=== PATIENT | male | born 1985 | race Caucasian/White ===

== ENCOUNTER → 2016-10-09 | Emergency (ER) | payer OTHER ==
[~2016-10-09] MED LIST: ONDANSETRON 4 MG/2 ML VIAL IVPUSH ONE; ONDANSETRON 4 MG/2 ML VIAL ONE; SODIUM CHLORIDE 0.9% 1000 ML INFUS.BAG IV ONE
[2016-10-09 14:42] VITALS: BMI 24.7
--- NOTE | 2016-10-09 15:30 | PDOC ---
Attending Attestation - Resident Resident Name: Donte Arambula - ED Attending Attestation I have performed the following: I have examined & evaluated the patient, The case was reviewed & discussed with the resident, I agree w/resident's findings & plan, Exceptions are as noted - HPI HPI: 10/09/16 15:28 The patient is a 30-year-old male, with no significant past medical history, who presents to the emergency department with approximately 9 days of intermittent diarrhea, with nausea and vomiting. The diarrhea is nonbloody, and without mucus. He is having 4-5 episodes per day. He has vomited a total of 4 times since the onset of the symptoms, but because of nausea, has had decreased by mouth intake. He reports subjective fever accompanied by chills. Two his family members were sick, with the same symptoms, but are now well. No recent ingestion of river, stream or [place] water. No recent ingestion of raw meat. No recent ingestion of shellfish. No antibiotic use in the past 6 months. No recent travel outside of the [facility]. No sick contacts with similar symptoms. No blood or mucous noted in the stools. - Physicial Exam PE: 10/09/16 15:30 The patient is well-appearing and in no acute distress Vitals noted Abdomen is soft and nontender 10/09/16 16:18 - Medical Decision Making 10/09/16 15:30 The patient is well-appearing and in no acute distress His abdomen is soft, even to deep palpation Given the duration of his symptoms, will obtain labs and stool studies 10/09/16 16:18 Labs pending I discussed the plan of care with the resident If he has significant leukocytosis or stool is guaiac positive, we will provide a five-day course of a fluoroquinolone Otherwise, he will be discharged, with instructions to follow-up with his primary care physician tomorrow and to ensure that they received culture results Clinical impression: Diarrhea Case discussed in detail with oncoming Emergency Physician including history, physical exam and ancillary studies. Oncoming Emergency Physician has assumed care for the patient and will complete the evaluation and treatment. Discharge Disposition - Diagnosis Diarrhea - Patient Instructions Additional Instructions: Return to the emergency department immediately with ANY new, persistent or worsening symptoms. You MUST call and follow up with your doctor tomorrow. Please make sure your doctor reviews the results of your emergency department evaluation. Specifically, please make sure your doctor reviews the results of the stool studies we sent.
--- NOTE | 2016-10-09 15:53 | PDOC ---
History of Present Illness - General Chief Complaint: Diarrhea Stated Complaint: DIARRHEA Time Seen by Provider: 10/09/16 14:50 History Source: Patient, Sibling Exam Limitations: No Limitations - History of Present Illness Initial Comments: 10/09/16 15:41 The patient is a 30M with no significant PMH who presents to the ED with diarrhea and vomiting for 8 days. He has been experiencing diarrhea 4X/day and vomited 4 times since symptom onset. There is no blood or mucus in his stool, he describes it only as watery. He came back 7 days ago from [place]. He also complains of a headache since Saturday. Yesterday he states he had a fever. He denies drinking water in [place]. He states that his and daughter had similar symptoms for 1 day, but have since resolved. ROS+: fever, chills, nausea, vomiting, headache ROS-: CP, SOB, bloody diarrhea Allergies: NKDA PSH: None Social: Does not smoke, drink, or use recreational drugs Past History - Past Medical History Allergies/Adverse Reactions: Allergies Allergy/AdvReac Type Severity Reaction Status Date / Time No Known Allergies Allergy Verified 10/09/16 14:42 Home Medications: Ambulatory Orders Cyclobenzaprine HCl [Flexeril -] 10 mg PO TID PRN #12 tablet 02/17/16 Ibuprofen 600 mg PO QID PRN #20 tablet 02/17/16 - Immunization History Immunization Up to Date: Yes - Psycho/Social/Smoking Cessation Hx Anxiety: No Suicidal Ideation: No Smoking History: Never smoked Have you smoked in the past 12 months: No Number of Cigarettes Smoked Daily: 0 Information on smoking cessation initiated: No Hx Alcohol Use: No Drug/Substance Use Hx: No Substance Use Type: None Review of Systems - Review of Systems Able to Perform ROS?: Yes Is the patient limited Pakistani proficient: No Constitutional: Yes: Chills, Fever. No: Loss of Appetite Respiratory: No: Shortness of Breath Cardiac (ROS): No: Chest Pain ABD/GI: Yes: Diarrhea, Nausea, Other (Watery diarrhea). No: Abdominal Distended *Physical Exam - Vital Signs Last Vital Signs Temp Pulse Resp BP Pulse Ox 98.5 F 78 18 125/80 100 10/09/16 14:39 10/09/16 14:39 10/09/16 14:39 10/09/16 14:39 10/09/16 14:39 - Physical Exam General Appearance: Yes: Nourished, Appropriately Dressed Respiratory/Chest: positive: Lungs Clear, Normal Breath Sounds. negative: Respiratory Distress Cardiovascular: positive: Regular Rhythm, Regular Rate, S1, S2 Gastrointestinal/Abdominal: positive: Normal Bowel Sounds, Flat, Soft, Tenderness (Tenderness to deep palpation diffusely). negative: Decreased BS, Protuberent, Distended, Guarding ED Treatment Course - LABORATORY CBC & Chemistry Diagram: 10/09/16 15:52 10/09/16 15:52 Medical Decision Making - Medical Decision Making 10/09/16 15:58 Patient is a 30M with no PMH who presents with vomiting and diarrhea for 8 days after visiting [place]. Patient is comfortable in bed. Labs have been drawn and stool cultures are pending the patient. The patient will be updates as labs/ results come in. 10/09/16 16:35 Patient expressed desire to have a bowel movement, was given a stool hat. After coming out of the restroom he stated he just had cramps and wanted something to eat. I gave him toast and applesauce and water, he states he is comfortable. Pending chem labs. CBC all WNL. 10/09/16 16:57 Patient is comfortably laying down. His food and water PO challenge is successful. 1 more L of NS is being hung and he is comfortable with plans. 10/09/16 18:07 Patient is feeling better, L is still hung and dripping. States he is comfortable with leaving if he does not produce a stool sample to process. 10/09/16 18:57 Patient received 2nd liter and is feeling better. Plans for discharge have been explained and all patient's questions have been answered. *DC/Admit/Observation/Transfer Diagnosis at time of Disposition: Diarrhea - Discharge Dispostion Disposition: HOME Condition at time of disposition: Stable Admit: No - Patient Instructions Additional Instructions: Return to the emergency department immediately with ANY new, persistent or worsening symptoms. You MUST call and follow up with your doctor tomorrow. Please make sure your doctor reviews the results of your emergency department evaluation. Specifically, please make sure your doctor reviews the results of the stool studies we sent. - Attestations Physician Attestion: 10/09/16 15:58 I, Dr. Donte Arambula, attest that this document has been prepared under my direction and personally reviewed by me in its entirety. I further attest, that it accurately reflects all work, treatment, procedures and medical decision -making performed by me.
[2016-10-09 16:05] LABS: BASOPHIL 0.5 % (0-2.0); EOSINOPHIL 0.4 % (0-4.5); MCH 29.6 pg (25.7-33.7); MCHC 33.8 g/dl (32.0-35.9); MEAN CELL VOLUME 87.7 fl (80-96); MEAN PLT VOLUME 8.5 fl (7.5-11.1); NEUTROPHILS 69.5 % (42.8-82.8); PLATELET COUNT 200 K/MM3 (134-434); RDW 13.5 % (11.9-15.9); WHITE BLOOD COUNT 5.6 K/mm3 (4.0-10.0)
[2016-10-09 16:40] LABS: ALBUMIN 3.7 g/dl (3.4-5.0); ANION GAP 7 (8-16); BILIRUBIN,TOTAL 0.4 mg/dL (0.2-1.0); CALCIUM 8.4 mg/dL (8.5-10.1); CO2 29 mmol/L (21-32); CREATININE 0.9 mg/dL (0.7-1.3); GLUCOSE,RANDOM 85 mg/dL (74-106); PHOSPHOROUS 3.2 mg/dL (2.5-4.9); SGOT/AST 32 U/L (15-37); SGPT/ALT 34 U/L (12-78); TOT PROT 7.6 g/dl (6.4-8.2)
[2016-10-09 16:41] LABS: ALK PHOS 97 U/L (45-117)
[2016-10-09 19:38] VITALS: BP 115/67; PULSE 70; TEMP 98.7
== END | disposition home or self-care (01) ==
LOC: JER 14:29
PROC: 3E033GC Introduction of Other Therapeutic Substance into Peripheral Vein, Percutaneous Approach (ICD-10-PCS; principal; 2016-10-09)
DX: R19.7 Diarrhea, unspecified (principal)
CPT/HCPCS: 36415; 80053; 83735; 84100; 85025; 96374; 99284-25

== ENCOUNTER 2018-11-05 08:47 | Emergency (ER) | payer SELFPAY ==
[2018-11-05 08:56] VITALS: BP 145/87; PULSE 90; TEMP 98.2; BMI 27.3
[2018-11-05] MEDS ORDERED: CYCLOBENZAPRINE HCL 10 MG TABLET (FP) PO ONE (09:14)
[2018-11-05] MEDS ORDERED: KETOROLAC TROMETHAMINE 60 MG/2 ML VIAL IM ONE (09:14)
[2018-11-05] MEDS ORDERED: CYCLOBENZAPRINE HCL 10 MG TABLET (FP) ONE (09:22)
[2018-11-05] MEDS ORDERED: KETOROLAC TROMETHAMINE 60 MG/2 ML VIAL ONE (09:22)
--- NOTE | 2018-11-05 10:02 | PDOC ---
History of Present Illness - General Chief Complaint: Pain, Acute Stated Complaint: Abcess Time Seen by Provider: 11/05/18 09:04 History Source: Patient Exam Limitations: No Limitations Past History - Past Medical History Allergies/Adverse Reactions: Allergies Allergy/AdvReac Type Severity Reaction Status Date / Time No Known Allergies Allergy Verified 10/09/16 14:42 Home Medications: Ambulatory Orders Cyclobenzaprine HCl [Flexeril 10 mg] 10 mg PO TID PRN #21 tablet 11/05/18 COPD: No - Immunization History Immunization Up to Date: Yes - Suicide/Smoking/Psychosocial Hx Smoking History: Never smoked Have you smoked in the past 12 months: No Number of Cigarettes Smoked Daily: 0 Information on smoking cessation initiated: No Hx Alcohol Use: No Drug/Substance Use Hx: No Substance Use Type: None *Physical Exam - Vital Signs Last Vital Signs Temp Pulse Resp BP Pulse Ox 98.2 F 90 18 145/87 99 11/05/18 08:53 11/05/18 08:53 11/05/18 08:53 11/05/18 08:53 11/05/18 08:53 - Physical Exam General Appearance: No: Apparent Distress Respiratory/Chest: positive: Lungs Clear, Normal Breath Sounds. negative: Respiratory Distress Cardiovascular: positive: Regular Rhythm, Regular Rate, S1, S2. negative: Murmur Gastrointestinal/Abdominal: positive: Normal Bowel Sounds, Soft. negative: Tender, Distended, Guarding, Rebound Musculoskeletal: negative: Vertebral Tenderness Extremity: positive: Other (+positive SLR RLE) Integumentary: positive: Normal Color. 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, Fully Oriented, Alert, Normal Mood/ Affect, Motor Strength 5/5 ED Treatment Course - Medications Given in the ED: ED Medications Discontinued Medications Generic Name Dose Route Start Last Admin Trade Name Freq PRN Reason Stop Dose Admin Cyclobenzaprine HCl 10 mg 11/05/18 09:14 11/05/18 09:29 Flexeril - PO 11/05/18 09:15 10 mg ONCE ONE Administration Ketorolac Tromethamine 60 mg 11/05/18 09:14 11/05/18 09:29 Toradol Injection - IM 11/05/18 09:15 60 mg ONCE ONE Administration Medical Decision Making - Medical Decision Making 32 y/o M with hx of lumbar herniated disc presents with muscle spasms and pain radiating down R posterior leg (down to back of knee) x 1 week along with occasional tingling of R 4th and 5th toes. Pain is worse with sitting down. Denies trauma, heavy lifting, sob, cp, abd pain, n/v, urinary complaints, back pain, saddle/groin paresthesia, bowel/bladder incontinence. Likely sciatica; no evidence of weakness of extremities on exam Given Toradol and Flexeril and feeling better Given PCP clinic card for f/u 11/05/18 09:58 *DC/Admit/Observation/Transfer Diagnosis at time of Disposition: Sciatica Qualifiers: Laterality: right Qualified Code(s): M54.31 - Sciatica, right side - Discharge Dispostion Disposition: HOME Condition at time of disposition: Stable Decision to Admit order: No - Prescriptions Prescriptions: Cyclobenzaprine HCl [Flexeril 10 mg] 10 mg PO TID PRN #21 tablet PRN Reason: Muscle Spasms - Referrals Referrals: Jermaine Levin MD [Staff Physician] - 2 Days - Patient Instructions Printed Discharge Instructions: DI for Sciatica Additional Instructions: Thank you for choosing [facility]. It was a pleasure taking care of you. You may take Motrin 600 mg every 6 hours by mouth as needed for mild to moderate pain. Take Motrin with food. Take Flexeril as needed for muscle spasms. This medication can also make you drowsy so please be cautious with driving or performing heavy physical work. Recommend outpatient physical therapy; you were referred to PCP clinic for further evaluation Return to the Emergency Department if your symptoms worsen or persist, you have fever, shortness of breath, chest pain, severe abdominal pain, vomiting, weakness of extremities (arms and/or legs), changes in vision or walking, unable to control bowel or bladder movements or other concerning symptoms. - Post Discharge Activity
== END 2018-11-05 10:15 | disposition home or self-care (01) ==
LOC: JERFT 08:47
PROC: 3E0233Z Introduction of Anti-inflammatory into Muscle, Percutaneous Approach (ICD-10-PCS; principal; 2018-11-05)
DX: M54.41 Lumbago with sciatica, right side (principal); M62.830 Muscle spasm of back
CPT/HCPCS: 99281-25

== ENCOUNTER 2019-04-17 22:24 | Emergency (ER) | payer SELFPAY ==
[2019-04-17 22:29] VITALS: TEMP 98.3; BMI 27.3
[2019-04-17] MEDS ORDERED: ACETAMINOPHEN 325 MG TABLET (FP) PO ONE (23:59)
--- NOTE | 2019-04-17 23:59 | PDOC ---
History of Present Illness - General Chief Complaint: Weakness Stated Complaint: WEAKNESS Time Seen by Provider: 04/17/19 23:30 History Source: Patient, Spouse ( present at bedside.) Exam Limitations: No Limitations - History of Present Illness Initial Comments: HPI: 33 y/o male presenting to [facility] ER complaining of pinching sensation and numbness to right side of face that started spontaneously this evening. Also felt a pinching sensation in the upper right quadrant of his mouth; no hot or cold sensitivity. [place] tongue heaviness without shortness of breath or noisy breathing. Sensation traveled to the right anterior chest wall before resolving. At time of interview, the pt's only complaint was the pinching sensation to the right side of the face. No h/o similar sensation. Family Hx: - No first degree relatives suffered NH under age 65 Medical Hx: - Denies past medical history. Denies prescription medications. Review of Systems: In addition to that documented in the HPI above, the additional ROS was obtained : Constitutional- Denies fevers or chills Head- Denies vision changes ENMT- Denies sore throat CV- Denies chest pain Resp- Denies SOB GI- Denies vomiting or diarrhea - Denies painful urination MSK- Denies recent trauma Skin- Denies new rashes Neuro- Her HPI Endocrine- Denies polyuria Heme- Denies bleeding or bruising Physical Examination: Vital signs and nursing notes reviewed. Constitutional- Well-developed, well-nourished adult male in no acute distress or obvious discomfort. Found semi-fowlers on hospital bed. Head- Normocephalic. No obvious external signs of trauma. Reports decreased sensation in the V2 distribution on the right compared to left. Equal sensation in V1 and V3 distributions. Eyes- Pupuils 4 mm and PERRL bilaterally. EOMI. Sclerae white. Conjunctiva moist and not injected. Ears- External auditory canals and tympanic membranes pearly alicea. Hearing grossly intact. Nose- No nasal discharge. Throat- Oral cavity and pharynx normal. No inflammation, swelling, exudate, or lesions. Teeth and gingiva in good general condition. No dental tenderness to direct percussion. Uvula midline. Neck- Supple, trachea is midline. Cardiovascular / Chest- Regular rate and regular rhythm. No murmur, rubs, clicks , or gallops. Peripheral pulses- radial pulses full. No anterior chest wall tenderness. Respiratory- Breathing unlabored. Equal chest rise and fall. Clear to auscultation bilaterally. No stridor, no wheezing, no rhonchi. Gastrointestinal- abdomen is soft, non-tender, non-distended. Neuro- Alert and oriented x4. Moving all four extremities spontaneously. No facial asymmetry. No slurred speech, but frequent stuttering (baseline per pt). No focal deficits. No upper or lower extremity drift. Sensation to all four extremities intact. Proximal and distal strength 5/5. No nuchal rigidity. Skin- Warm, dry, and intact. No bruising, rashes, or other lesions. No palpable nodules. - No R or L CVA tenderness. Psych- Affect- flat. Mood- normal. Speech was non-labored, non-pressured. Past History - Past Medical History Allergies/Adverse Reactions: Allergies Allergy/AdvReac Type Severity Reaction Status Date / Time No Known Allergies Allergy Verified 04/17/19 22:29 Home Medications: Ambulatory Orders Cyclobenzaprine HCl [Flexeril 10 mg] 10 mg PO TID PRN #21 tablet 11/05/18 COPD: No - Immunization History Immunization Up to Date: Yes - Psycho Social/Smoking Cessation Hx Smoking History: Never smoked Have you smoked in the past 12 months: No Number of Cigarettes Smoked Daily: 0 Hx Alcohol Use: No Drug/Substance Use Hx: No Substance Use Type: None *Physical Exam - Vital Signs Last Vital Signs Temp Pulse Resp BP Pulse Ox 36.8 C 93 H 18 151/87 99 04/17/19 22:26 04/17/19 22:26 04/17/19 22:26 04/17/19 22:26 04/17/19 22:26 Vital Signs - Vital Signs #1 Time: 23:59 Blood Pressure: 131/89 BP Location: Right Arm Blood Pressure Position: Sitting Pulse Rate: 78 Respiratory Rate: 14 O2 Sat by Pulse Oximetry (%): 100 Oxygen Delivery Method: Room Air ED Treatment Course - LABORATORY CBC & Chemistry Diagram: 04/18/19 01:45 04/18/19 01:45 Discharge - Discharge Information Problems reviewed: Yes Clinical Impression/Diagnosis: Facial paresthesia Condition: Good Disposition: HOME - Admission No - Follow up/Referral Referrals: [facility] [place] [Provider Group] Maggie Baker MD [Staff Physician] - - Patient Discharge Instructions Additional Instructions: You were seen today for pinching sensation to the right side of your face. Your labs and EKG were normal today. The sensation could be the first signs of a shingles outbreak. You can take over the counter Tylenol or Advil as needed for pain. Take as directed on the package insert. Do not exceed the recommended dosage. Follow up with your primary care doctor in the next 3-4 days. You will need to call to make an appointment. The number is included in this packet. A copy of todays results are attached to this packet. Take it to the appointment so your doctor can review them. Call your doctor right away if you develop a rash in the area! You should follow up with a neurologist. I have entered a referral for you to see Dr. Baker. You will need to call to make an appointment. The number is included in this packet. A copy of todays results are attached to this packet. Take it to the appointment so your doctor can review them. Lastly, you need to see your dentist, as these symptoms could be related to a tooth infection. Go to the nearest emergency department if your condition worsens or you feel like you need additional emergency evaluation. Watch for worsening weakness, facial drooping, slurred speech, fevers, or persistent chest pain as these may be signs of a more serious problem. Print Language: HUNGARIAN - Post Discharge Activity Work/Back to School Note: Back to Work
[2019-04-18] MEDS ORDERED: ACETAMINOPHEN 325 MG TABLET (FP) ONE (00:21)
--- NOTE | 2019-04-18 02:38 | PDOC ---
Attending Attestation - Resident Resident Name: StevensJason - ED Attending Attestation I have performed the following: I have examined & evaluated the patient, The case was reviewed & discussed with the resident, I agree w/resident's findings & plan - HPI HPI: 04/18/19 02:38 33 y/o male presenting to [facility] ER complaining of pinching sensation and numbness to right side of face that started spontaneously this evening around 6PM. Also felt a pinching sensation in the upper right quadrant of his mouth; no hot or cold sensitivity. [place] tongue heaviness without shortness of breath or noisy breathing. Sensation traveled to the right submental area and right sided anterior chest wall before resolving. At time of interview, the pt's only complaint was the pinching sensation to the right side of the face. No h/o similar sensation. Pt has a history of dental work/fillings 4 years ago. Pt has no swelling of the face or gums, no fever or chills. 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
[2019-04-18 03:27] LABS: BASO % 0.5 % (0-2.0); EOS % 0.5 % (0-4.5); HEMATOCRIT 42.9 % (35.4-49); HEMOGLOBIN 14.6 GM/dL (11.7-16.9); LYMPH % 20.3 % (8-40); MCH 29.4 pg (25.7-33.7); MCHC 34.1 g/dl (32.0-35.9); MEAN CELL VOLUME 86.1 fl (80-96); MEAN PLT VOLUME 8.3 fl (7.5-11.1); MONO % 5.2 % (3.8-10.2); NEUT % 73.5 % (42.8-82.8); PLATELET COUNT 315 K/MM3 (134-434); RBC 4.98 M/mm3 (4.00-5.60); RDW 13.3 % (11.9-15.9); WHITE BLOOD COUNT 10.6 K/mm3 (4.0-10.0)
[2019-04-18 03:34] LABS: ALBUMIN 3.8 g/dl (3.4-5.0); BILIRUBIN,TOTAL 0.5 mg/dL (0.2-1); CALCIUM 8.7 mg/dL (8.5-10.1); CREATININE 0.7 mg/dL (0.55-1.3); POTASSIUM 3.6 mmol/L (3.5-5.1); TOT PROT 7.5 g/dl (6.4-8.2)
[2019-04-18 04:17] VITALS: BP 131/89; PULSE 78
--- NOTE | 2019-04-18 08:46 | EKG ---
Test Reason : Blood Pressure : / mmHG Vent. Rate : 070 BPM Atrial Rate : 070 BPM P-R Int : 142 ms QRS Dur : 106 ms QT Int : 382 ms P-R-T Axes : 069 076 051 degrees QTc Int : 412 ms NORMAL SINUS RHYTHM NORMAL ECG NO PREVIOUS ECGS AVAILABLE Confirmed by RASHAWN MORTON, JACOB ([id number]) on 04/18/2019 8:46:28 AM Referred By: Confirmed By:JACOB MOROCHO MD
== END 2019-04-18 04:49 | disposition home or self-care (01) ==
LOC: JER 22:24
DX: R20.2 Paresthesia of skin (principal)
CPT/HCPCS: 36415; 80053; 85025; 93005; 93010; 99283-25